=== PATIENT | female | born 1965 | race American Indian/Alaskan Native ===

== ENCOUNTER 2021-12-12 16:34 | Emergency (ER) | payer SELFPAY ==
[2021-12-12 17:21] VITALS: BP 165/98
[2021-12-12] MEDS ORDERED: IBUPROFEN 600 MG TAB PO ONE (21:43)
[2021-12-12] MEDS ORDERED: HYDROcodone/ACETAMINOPHEN 5-325 MG TAB PO ONE (21:43)
[2021-12-12] MEDS ORDERED: ONDANSETRON 4 MG ODT TAB PO ONE (21:43)
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
--- NOTE | 2021-12-12 23:55 | Vascular Lab Report ---
DUPLEX DOPPLER LOWER EXTREMITY VEINS, LEFT INDICATION / CLINICAL INFORMATION: Left lower leg pain. TECHNIQUE: Duplex doppler imaging was performed through the veins of the left lower extremity using v enous compression and other maneuvers. COMPARISON: None available. FINDINGS: LEFT COMMON FEMORAL VEIN: Negative. LEFT FEMORAL VEIN: Negative. LEFT POPLITEAL VEIN: Negative. LEFT CALF VEINS: Negative. ADDITIONAL FINDINGS: Hypoechoic cystic appearing structure is demonstrated adjacent to left greater s aphenous vein. Relationship to the popliteal fossa normal. IMPRESSION: 1. No sonographic evidence for DVT in the left lower extremity. Signer Name: Campbell Kahn II, MD Signed: 12/12/2021 11:51 PM Workstation Name: [id number]
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
== END 2021-12-13 00:30 | disposition home or self-care (01) ==
LOC: ED 16:34
DX: S86.912A Strain of unspecified muscle(s) and tendon(s) at lower leg level, left leg, initial encounter (principal); S83.92XA Sprain of unspecified site of left knee, initial encounter; Z79.899 Other long term (current) drug therapy; V89.2XXA Person injured in unspecified motor-vehicle accident, traffic, initial encounter; Y93.89 Activity, other specified; Y92.89 Other specified places as the place of occurrence of the external cause; Y99.8 Other external cause status
CPT/HCPCS: 99284; J3490; Q0162